=== PATIENT | female | born 1995 | race Caucasian/White ===

== ENCOUNTER 2017-02-27 15:42 | Emergency (ER) | payer OTHER ==
--- NOTE | 2017-02-27 18:11 | ED NURSING NOTES ---
Clinical Report - Nurses [facility] [address] [place] [address] 02/27/2017 15:45 Patient: MARCELA MULLER TRIAGE Triage time 15:49. Acuity: LEVEL 3. Chief Complaint: NUMBNESS. Alert. SEPSIS SCREEN: Sepsis Screen. Negative (no infection suspected/documented). CHANTAL COMA SCORE: Gar[place] Coma Scale: 15- eyes open spontaneously (4); best verbal response- oriented x 4 (5); best motor response- obeys commands (6). --15:55 Adilene Lindsay R.N. 15:49 02/27/17. BP: 128/79. HR: 109. RR: 18. O2 saturation: 98%. Temp: 98.7 F. Pain level now 0/10. --15:55 Adilene Lindsay R.N. Weight: 57.1 kg stated. Height/Length: 68 inches Per Patient. BMI: 19.1. Growth Chart Percentile: Weight: 45.3%. Height/Length: 92.7%. --15:53 Adilene Lindsay R.N. Medications Control Pills. --15:52 Adilene Lindsay R.N. Medication/allergy information source: the patient. --15:55 Adilene Lindsay R.N. Allergies No Known Drug Allergy. --15:52 Adilene Lindsay R.N. History Arrived by private vehicle. Historian: patient. Accompanied by friend. Primary physician (Dr. Hunter). This started just prior to arrival. Patient was last known well (15:30). ( sudden onset of bilateral arm numbness that radiated to upper body and face. Now only bilat arms. Was dizzy.). Treatment CONSERVATION SCIENCE OFFICER: None. PAST MEDICAL HX: Negative. Immunizations: up-to-date. Last normal menstrual period was 1 week ago. SURGERY HX: No history of previous surgery. SOCIAL HX: Never smoker. History of drug use: marijuana. No alcohol use. No infectious disease exposure. ABUSE ASSESSMENT: No report of abuse. SELF HARM ASSESSMENT: A self harm assessment was performed. The patient answered "no" to the question "Do you have thoughts of harming or killing yourself?" and "Are you here because you tried to hurt yourself?". FALL RISK ASSESSMENT: Fall risk assessment completed. No fall risk identified. NUTRITIONAL RISK ASSESSMENT: The nutritional risk assessment revealed no deficiencies. FUNCTIONAL ASSESSMENT: Functional assessment: no impairments noted. LEARNING NEEDS ASSESSMENT: The learning needs assessment revealed no barriers. SKIN INTEGRITY ASSESSMENT: Skin integrity risk assessment completed. No skin integrity risk identified. --15:55 Adilene Lindasy R.N. Interventions ID band on patient. To treatment room. --15:55 Adilene Lindsay R.N. PHYSICAL ASSESSMENT GENERAL / NEURO / PSYCH: Awake. Oriented X 4. Alert. Appears anxious. Speech normal. Mood/affect normal. Strength is not unequal. She has had new onset of numbness of the right arm and hand and left arm and hand. No slurred speech. RESPIRATORY: Respirations not labored. SKIN: Skin is intact, warm and dry. --15:56 Adilene Lindsay R.N. NURSING PROGRESS NOTES Patient gowned. Head of bed elevated. Two patient identifiers checked. Call light placed in reach. Side rails up x 2. Bed placed in lowest position. Brakes of bed on. Patient ready for evaluation- chart flagged. ED physician notified. --15:57 Adilene Lindsay R.N. 15:58 02/27/2017 Site #1 started via IV in the left wrist with an 20g angiocath, with aseptic technique and good blood return; one attempt. Blood drawn: rainbow set. Saline lock flushed with 5 mL saline (placed by Kim MEDRANO). --15:59 Adilene Lindsay R.N. 17:15 02/27/17. BP: 117/64. HR: 104. O2 saturation: 97%. 16:45 02/27/17. BP: 111/60. HR: 95. O2 saturation: 97%. 16:15 02/27/17. BP: 116/63. HR: 101. RR: 16. O2 saturation: 100%. --17:34 Neftali, Adilene, R.N. 18:15 First contact with pt. pt and friends watching t.v. pt in no acute distress. given dc instructions no questions voiced. --18:28 Bettina Taylor R.N. 18:15 02/27/2017 Site #1 removed upon discharge. Bandaid applied. --18:28 Bettina Taylor R.N. 18:15 02/27/2017 IV Saline Lock Drip IV Discontinued: upon discharge. Total amount infused: 0 mL. IV patency established. IV site checked: no pain, redness, or swelling. IV flushed thoroughly. --18:29 Bettina Taylor R.N. DISPOSITION / DISCHARGE 18:20. Condition at departure: improved and stable. No learning barriers present. Discharge instructions provided and reviewed with the patient. Reviewed medication(s) (tylenol or motrin if pain). Treatments reviewed (po food and fluid intake important). Patient and signal circuit designer verbalized understanding. Written instructions provided in Guinean. The patient was discharged home and accompanied by signal circuit designer. She left the Emergency Department ambulatory and via private vehicle. Weight Loss Counselor driving. --18:27 Bettina Taylor R.N. 18:20 02/27/17. BP: 112/66. HR: 74. RR: 18. O2 saturation: 100%. Temp: deferred. Pain level now: 0/10. --18:27 Bettina Taylor R.N. 18:20. CHANTAL COMA SCORE: Garland Coma Scale: 15- eyes open spontaneously (4); best verbal response- oriented x 4 (5); best motor response- obeys commands (6). --18:29 Bettina Taylor R.N. Locked/Released at 02/27/2017 18:29 by Bettina Taylor R.N.
--- NOTE | 2017-02-27 18:11 | ED CLINICAL REPORT ---
Clinical Report - Physicians/Mid Levels [facility] [address] [place] [address] 02/27/2017 15:45 Patient: MARCELA MULLER Time Seen: 15:48. Arrived- By private vehicle. Historian- patient. HISTORY OF PRESENT ILLNESS Chief Complaint: PARESTHESIA. The patient has had numbness, and tingling. No weakness, impaired speech or swallowing, visual disturbance or recent fall. No difficulty walking. This started today about 30 min ago and is still present but is improving. At its maximum deficit described as mild. When seen in the E.D., it was almost gone. No dizziness, altered mental status, seizure or blackouts. Usually is alert and oriented X3 and has normal mobility. (Pt states that she began to have a tingly, numb sensation in both arms while driving. Pt states she began to feel anxious, and after a few minutes, the tingling spread to her face. Pt states that now that she is here, most of the sx have resolved, and only the tips of her fingers have a mild amount of tingling.). Similar symptoms previously: Once, milder. Recent medical care: Not recently seen/assessed. REVIEW OF SYSTEMS No fever, headache, head injury, chest pain or difficulty breathing. No cough, sputum production, sore throat, abdominal pain or nausea. No diarrhea, black stools, difficulty with urination, skin rash or enlarged lymph nodes. No joint pain, vomiting, bloody stools or back pain. All systems otherwise negative, except as recorded above. PAST HISTORY Problems: no known problems. Additional Surgeries: no known surgeries. Medications: Control Pills. Allergies: No Known Drug Allergy. SOCIAL HISTORY Smoker- current status unknown. History of drug use: marijuana. No alcohol use. ADDITIONAL NOTES The nursing notes have been reviewed. PHYSICAL EXAM Vital Signs: 02/27/2017 15:49 BP: 128/79. HR: 109. RR: 18. O2 saturation: 98%. Temp: 98.7 F. Have been reviewed. Appearance: Alert. No acute distress. Head: Head atraumatic. Eyes: Pupils equal, round and reactive to light. ENT: Normal ENT inspection. Airway intact. Neck: Normal inspection. CVS: Normal heart rate and rhythm. Heart sounds normal. Pulses normal. Respiratory: No respiratory distress. Breath sounds normal. Abdomen: Soft and nontender. Back: Normal inspection. Skin: Skin warm and dry. Normal skin color. No rash. Normal skin turgor. Extremities: Extremities exhibit normal ROM. No lower extremity edema. Neuro: Alert. Oriented X 3. Mood/affect normal. Speech normal. Cranial nerves normal (as tested). No cerebellar findings. No motor deficit. No sensory deficit. LABS, X-RAYS, AND EKG Laboratory Tests: UA-Culture if indicated: (GUERLINE: 02/27/2017 16:10) ( [facility] [place] 02[place] 16:36) Final results Test Result Flag Units (Reference) URINE COLOR MACKENZIE URINE APPEARANCE CLEAR URINE GLUCOSE NEGATIVE (NEGATIVE) URINE BILIRUBIN NEGATIVE (NEGATIVE) URINE KETONE 3+ (NEGATIVE) URINE SPECIFIC GRAVITY >= 1.030 (1.010-1.030) URINE PH 6.0 (5.0-8.0) URINE PROTEIN NEGATIVE (NEGATIVE) URINE UROBILINOGEN 0.2 EU/dL (0.2-1.0) URINE NITRITE NEGATIVE (NEGATIVE) URINE BLOOD NEGATIVE (NEGATIVE) URINE LEUK ESTERASE NEGATIVE (NEGATIVE) URINE RBC NONE SEEN rbc/hpf (0-1) URINE WBC 0-1 wbc/hpf (0-1) URINE EPITHELIAL CELLS RARE EPI/hpf (0-5) URINE BACTERIA FEW (1+) (NONE SEEN) URINE COMMENT CULT NOT INDICATED URINE CULTURES ARE SET-UP BASED ON THE FOLLOWING CRITERIA:POSITIVE NITRITEPOSITIVE LEUKOCYTE ESTERASEGREATER THAN 10 WHITE BLOOD CELLSMODERATE (2+) OR GREATER BACTERIA Urine: (GUERLINE: 02/27/2017 16:10) ( [facility] [place] 02/27/2017 16:29) Final results Test Result Flag Units (Reference) URINE NEGATIVE CBC w Diff: (GUERLINE: 02/27/2017 16:00) ( [facility] [place] 02/27/2017 16:13) Final results Test Result Flag Units (Reference) WHITE BLOOD COUNT 9.4 K/uL (4.5-11.5) RED BLOOD COUNT 3.86 L M/uL (4.00-5.20) HEMOGLOBIN 11.9 L gm/dL (12.0-16.0) HEMATOCRIT 35.2 L % (36.0-46.0) MEAN CELL VOLUME 91 fL (80-100) MEAN CORPUSCULAR HGB 31 pg (26-34) MEAN CORPUSCULAR HGB CONC 34 g/dL (31-37) RED CELL DISTRIBUTION WIDTH 13.5 % (11.6-14.8) PLATELET COUNT 264 K/uL (150-400) NEUTROPHIL % 74.5 % (50-75) LYMPH % 18.5 L % (25-40) MONO % 6.6 % (3-14) EOSINOPHIL % 0.1 % (0-4) BASOPHIL % 0.3 % (0-2) CMP: (GUERLINE: 02/27/2017 16:00) ( [facility] 02/27/2017 16:25) Final results Test Result Flag Units (Reference) GLUCOSE 70 mg/dL (70-110) BUN 10 mg/dL (7-18) CREATININE 0.7 mg/dL (0.6-1.3) Estimated GFR >60 mL/min Estimated GFR- >60 mL/min Note: Persistent reduction over 3 months in eGFR<60 mL/min/1.73 m2 defines CKD. Patients with eGFR values>=60 mL/min/1.73 m2 may also have CKD if evidence ofpersistent proteinuria. Additional information may be foundat www.kidney.org. SODIUM 142 mmol/L (136-145) POTASSIUM 3.6 mmol/L (3.5-5.1) CHLORIDE 103 mmol/L (98-107) CARBON DIOXIDE 23 mmol/L (21-32) CALCIUM 8.8 mg/dL (8.5-10.1) TOTAL PROTEIN 7.6 g/dL (6.4-8.2) ALBUMIN 4.2 g/dL (3.3-5.0) BILIRUBIN, TOTAL 1.1 H mg/dL (0.0-1.0) ALKALINE PHOSPHATASE 72 U/L (46-116) AST (SGOT) 21 U/L (15-37) ALT (SGPT) 20 U/L (12-78) . Pulse Oximetry: 02/27/2017 15:49 O2 saturation: 98%. (FIO2 - room air). Interpretation: normal. PROGRESS AND PROCEDURES Course of Care: I d/w pt that sx are not consistent with a CVA. She was worked up for other potential causes of parasthesias, with unremarkable results. Patient counseled in person regarding the patient's stable condition, test results, diagnosis and need for follow-up. Concerns were addressed. Old medical records reviewed. Disposition: Discharged. Condition: stable and improved. CLINICAL IMPRESSION Paresthesia INSTRUCTIONS (Your labs look good. Your symptoms do not go along with a stroke. It is very important that you get enough food and water, so that your nerves (and the rest of your body/organs) function properly.). Warnings: GENERAL WARNINGS: Return or contact your physician immediately if your condition worsens or changes unexpectedly, if not improving as expected, or if other problems arise. Your Current Medications: CONTINUE TAKING THE FOLLOWING MEDICATIONS: Control Pills*. Follow-up: Follow up with your doctor as needed. Understanding of the discharge instructions verbalized by patient. (Electronically signed by Madalyn Hurst MD 03/09/2017 21:32)
--- NOTE | 2017-02-27 18:11 | ED NURSING NOTES ---
Clinical Report - Nurses [facility] [address] [place] [address] 02/27/2017 15:45 Patient: MARCELA MULLER TRIAGE Triage time 15:49. Acuity: LEVEL 3. Chief Complaint: NUMBNESS. Alert. SEPSIS SCREEN: Sepsis Screen. Negative (no infection suspected/documented). CHANTAL COMA SCORE: Watson Coma Scale: 15- eyes open spontaneously (4); best verbal response- oriented x 4 (5); best motor response- obeys commands (6). --15:55 Adilene Lindsay R.N. 15:49 02/27/17. BP: 128/79. HR: 109. RR: 18. O2 saturation: 98%. Temp: 98.7 F. Pain level now 0/10. --15:55 Adilene Lindsay R.N. Weight: 57.1 kg stated. Height/Length: 68 inches Per Patient. BMI: 19.1. Growth Chart Percentile: Weight: 45.3%. Height/Length: 92.7%. --15:53 Adilene Lindsay R.N. Medications Control Pills. --15:52 Adilene Lindsay R.N. Medication/allergy information source: the patient. --15:55 Adilene Lindsay R.N. Allergies No Known Drug Allergy. --15:52 Adilene Lindsay R.N. History Arrived by private vehicle. Historian: patient. Accompanied by friend. Primary physician (Dr. Hunter). This started just prior to arrival. Patient was last known well (15:30). ( sudden onset of bilateral arm numbness that radiated to upper body and face. Now only bilat arms. Was dizzy.). Treatment CANCER REGISTRY COORDINATOR: None. PAST MEDICAL HX: Negative. Immunizations: up-to-date. Last normal menstrual period was 1 week ago. SURGERY HX: No history of previous surgery. SOCIAL HX: Never smoker. History of drug use: marijuana. No alcohol use. No infectious disease exposure. ABUSE ASSESSMENT: No report of abuse. SELF HARM ASSESSMENT: A self harm assessment was performed. The patient answered "no" to the question "Do you have thoughts of harming or killing yourself?" and "Are you here because you tried to hurt yourself?". FALL RISK ASSESSMENT: Fall risk assessment completed. No fall risk identified. NUTRITIONAL RISK ASSESSMENT: The nutritional risk assessment revealed no deficiencies. FUNCTIONAL ASSESSMENT: Functional assessment: no impairments noted. LEARNING NEEDS ASSESSMENT: The learning needs assessment revealed no barriers. SKIN INTEGRITY ASSESSMENT: Skin integrity risk assessment completed. No skin integrity risk identified. --15:55 Adilene Lindsay R.N. Interventions ID band on patient. To treatment room. --15:55 Adilene Lindsay R.N. PHYSICAL ASSESSMENT GENERAL / NEURO / PSYCH: Awake. Oriented X 4. Alert. Appears anxious. Speech normal. Mood/affect normal. Strength is not unequal. She has had new onset of numbness of the right arm and hand and left arm and hand. No slurred speech. RESPIRATORY: Respirations not labored. SKIN: Skin is intact, warm and dry. --15:56 Adilene Lindsay R.N. NURSING PROGRESS NOTES Patient gowned. Head of bed elevated. Two patient identifiers checked. Call light placed in reach. Side rails up x 2. Bed placed in lowest position. Brakes of bed on. Patient ready for evaluation- chart flagged. ED physician notified. --15:57 Adilene Lindsay R.N. 15:58 02/27/2017 Site #1 started via IV in the left wrist with an 20g angiocath, with aseptic technique and good blood return; one attempt. Blood drawn: rainbow set. Saline lock flushed with 5 mL saline (placed by Kim MEDRANO). --15:59 Adilene Lindsay R.N. 17:15 02/27/17. BP: 117/64. HR: 104. O2 saturation: 97%. 16:45 02/27/17. BP: 111/60. HR: 95. O2 saturation: 97%. 16:15 02/27/17. BP: 116/63. HR: 101. RR: 16. O2 saturation: 100%. --17:34 Neftali, Adilene, R.N. 18:15 First contact with pt. pt and friends watching t.v. pt in no acute distress. given dc instructions no questions voiced. --18:28 Betitna Taylor R.N. 18:15 02/27/2017 Site #1 removed upon discharge. Bandaid applied. --18:28 Bettina Taylor R.N. 18:15 02/27/2017 IV Saline Lock Drip IV Discontinued: upon discharge. Total amount infused: 0 mL. IV patency established. IV site checked: no pain, redness, or swelling. IV flushed thoroughly. --18:29 Bettina Taylor R.N. DISPOSITION / DISCHARGE 18:20. Condition at departure: improved and stable. No learning barriers present. Discharge instructions provided and reviewed with the patient. Reviewed medication(s) (tylenol or motrin if pain). Treatments reviewed (po food and fluid intake important). Patient and regional company hazmat tanker driver verbalized understanding. Written instructions provided in Sierra Leonean. The patient was discharged home and accompanied by regional company hazmat tanker driver. She left the Emergency Department ambulatory and via private vehicle. Currency Examiner driving. --18:27 Bettina Taylor R.N. 18:20 02/27/17. BP: 112/66. HR: 74. RR: 18. O2 saturation: 100%. Temp: deferred. Pain level now: 0/10. --18:27 Bettina Taylor R.N. 18:20. CHANTAL COMA SCORE: Watson Coma Scale: 15- eyes open spontaneously (4); best verbal response- oriented x 4 (5); best motor response- obeys commands (6). --18:29 Bettina Taylor R.N. Locked/Released at 02/27/2017 18:29 by Bettina Taylor R.N.
--- NOTE | 2017-02-27 18:11 | ED CLINICAL REPORT ---
Clinical Report - Physicians/Mid Levels [facility] [address] [place] [address] 02/27/2017 15:45 Patient: MARCELA MULLER Time Seen: 15:48. Arrived- By private vehicle. Historian- patient. HISTORY OF PRESENT ILLNESS Chief Complaint: PARESTHESIA. The patient has had numbness, and tingling. No weakness, impaired speech or swallowing, visual disturbance or recent fall. No difficulty walking. This started today about 30 min ago and is still present but is improving. At its maximum deficit described as mild. When seen in the E.D., it was almost gone. No dizziness, altered mental status, seizure or blackouts. Usually is alert and oriented X3 and has normal mobility. (Pt states that she began to have a tingly, numb sensation in both arms while driving. Pt states she began to feel anxious, and after a few minutes, the tingling spread to her face. Pt states that now that she is here, most of the sx have resolved, and only the tips of her fingers have a mild amount of tingling.). Similar symptoms previously: Once, milder. Recent medical care: Not recently seen/assessed. REVIEW OF SYSTEMS No fever, headache, head injury, chest pain or difficulty breathing. No cough, sputum production, sore throat, abdominal pain or nausea. No diarrhea, black stools, difficulty with urination, skin rash or enlarged lymph nodes. No joint pain, vomiting, bloody stools or back pain. All systems otherwise negative, except as recorded above. PAST HISTORY Problems: no known problems. Additional Surgeries: no known surgeries. Medications: Control Pills. Allergies: No Known Drug Allergy. SOCIAL HISTORY Smoker- current status unknown. History of drug use: marijuana. No alcohol use. ADDITIONAL NOTES The nursing notes have been reviewed. PHYSICAL EXAM Vital Signs: 02/27/2017 15:49 BP: 128/79. HR: 109. RR: 18. O2 saturation: 98%. Temp: 98.7 F. Have been reviewed. Appearance: Alert. No acute distress. Head: Head atraumatic. Eyes: Pupils equal, round and reactive to light. ENT: Normal ENT inspection. Airway intact. Neck: Normal inspection. CVS: Normal heart rate and rhythm. Heart sounds normal. Pulses normal. Respiratory: No respiratory distress. Breath sounds normal. Abdomen: Soft and nontender. Back: Normal inspection. Skin: Skin warm and dry. Normal skin color. No rash. Normal skin turgor. Extremities: Extremities exhibit normal ROM. No lower extremity edema. Neuro: Alert. Oriented X 3. Mood/affect normal. Speech normal. Cranial nerves normal (as tested). No cerebellar findings. No motor deficit. No sensory deficit. LABS, X-RAYS, AND EKG Laboratory Tests: UA-Culture if indicated: (GUERLINE: 02/27/2017 16:10) ( [facility] [place] 02/27/2017 16:36) Final results Test Result Flag Units (Reference) URINE COLOR MACKENZIE URINE APPEARANCE CLEAR URINE GLUCOSE NEGATIVE (NEGATIVE) URINE BILIRUBIN NEGATIVE (NEGATIVE) URINE KETONE 3+ (NEGATIVE) URINE SPECIFIC GRAVITY >= 1.030 (1.010-1.030) URINE PH 6.0 (5.0-8.0) URINE PROTEIN NEGATIVE (NEGATIVE) URINE UROBILINOGEN 0.2 EU/dL (0.2-1.0) URINE NITRITE NEGATIVE (NEGATIVE) URINE BLOOD NEGATIVE (NEGATIVE) URINE LEUK ESTERASE NEGATIVE (NEGATIVE) URINE RBC NONE SEEN rbc/hpf (0-1) URINE WBC 0-1 wbc/hpf (0-1) URINE EPITHELIAL CELLS RARE EPI/hpf (0-5) URINE BACTERIA FEW (1+) (NONE SEEN) URINE COMMENT CULT NOT INDICATED URINE CULTURES ARE SET-UP BASED ON THE FOLLOWING CRITERIA:POSITIVE NITRITEPOSITIVE LEUKOCYTE ESTERASEGREATER THAN 10 WHITE BLOOD CELLSMODERATE (2+) OR GREATER BACTERIA Urine: (GUERLINE: 02/27/2017 16:10) ( [facility] [place] 02/27/2017 16:29) Final results Test Result Flag Units (Reference) URINE NEGATIVE CBC w Diff: (GUERLINE: 02/27/2017 16:00) ( [facility] [place] 02/27/2017 16:13) Final results Test Result Flag Units (Reference) WHITE BLOOD COUNT 9.4 K/uL (4.5-11.5) RED BLOOD COUNT 3.86 L M/uL (4.00-5.20) HEMOGLOBIN 11.9 L gm/dL (12.0-16.0) HEMATOCRIT 35.2 L % (36.0-46.0) MEAN CELL VOLUME 91 fL (80-100) MEAN CORPUSCULAR HGB 31 pg (26-34) MEAN CORPUSCULAR HGB CONC 34 g/dL (31-37) RED CELL DISTRIBUTION WIDTH 13.5 % (11.6-14.8) PLATELET COUNT 264 K/uL (150-400) NEUTROPHIL % 74.5 % (50-75) LYMPH % 18.5 L % (25-40) MONO % 6.6 % (3-14) EOSINOPHIL % 0.1 % (0-4) BASOPHIL % 0.3 % (0-2) CMP: (GUERLINE: 02/27/2017 16:00) ( [facility] 02/27/2017 16:25) Final results Test Result Flag Units (Reference) GLUCOSE 70 mg/dL (70-110) BUN 10 mg/dL (7-18) CREATININE 0.7 mg/dL (0.6-1.3) Estimated GFR >60 mL/min Estimated GFR- >60 mL/min Note: Persistent reduction over 3 months in eGFR<60 mL/min/1.73 m2 defines CKD. Patients with eGFR values>=60 mL/min/1.73 m2 may also have CKD if evidence ofpersistent proteinuria. Additional information may be foundat www.kidney.org. SODIUM 142 mmol/L (136-145) POTASSIUM 3.6 mmol/L (3.5-5.1) CHLORIDE 103 mmol/L (98-107) CARBON DIOXIDE 23 mmol/L (21-32) CALCIUM 8.8 mg/dL (8.5-10.1) TOTAL PROTEIN 7.6 g/dL (6.4-8.2) ALBUMIN 4.2 g/dL (3.3-5.0) BILIRUBIN, TOTAL 1.1 H mg/dL (0.0-1.0) ALKALINE PHOSPHATASE 72 U/L (46-116) AST (SGOT) 21 U/L (15-37) ALT (SGPT) 20 U/L (12-78) . Pulse Oximetry: 02/27/2017 15:49 O2 saturation: 98%. (FIO2 - room air). Interpretation: normal. PROGRESS AND PROCEDURES Course of Care: I d/w pt that sx are not consistent with a CVA. She was worked up for other potential causes of parasthesias, with unremarkable results. Patient counseled in person regarding the patient's stable condition, test results, diagnosis and need for follow-up. Concerns were addressed. Old medical records reviewed. Disposition: Discharged. Condition: stable and improved. CLINICAL IMPRESSION Paresthesia INSTRUCTIONS (Your labs look good. Your symptoms do not go along with a stroke. It is very important that you get enough food and water, so that your nerves (and the rest of your body/organs) function properly.). Warnings: GENERAL WARNINGS: Return or contact your physician immediately if your condition worsens or changes unexpectedly, if not improving as expected, or if other problems arise. Your Current Medications: CONTINUE TAKING THE FOLLOWING MEDICATIONS: Control Pills*. Follow-up: Follow up with your doctor as needed. Understanding of the discharge instructions verbalized by patient. (Electronically signed by Madalyn Hurst MD 03/09/2017 21:32)
--- NOTE | 2017-02-27 18:11 | ED ORDER SUMMARY ---
..... Patient: MARCELA MULLER OrderSheet [facility] VisitID: [id number] [address] [place] [address] 22y, F Registration Date/Time: 02/27/2017 ORDER SHEET Weight: 57.1 kg (stated) Allergies: No Known Drug Allergy GENERAL ORDERS: CBC w Diff Urgent (15:58 02/27/2017 LAbe R.N. per protocol) (Ack 16:00 KHoerner) (16:44 LAbe R.N.) CMP Urgent (15:58 02/27/2017 LAbe R.N. per protocol) (Ack 16:00 KHoerner) (16:44 LAbe R.N.) UA-Culture if indicated Urgent (15:58 02/27/2017 LAbe R.N. per protocol) (Ack 16:00 KHoerner) (16:44 LAbe R.N.) Urine Urgent (15:58 02/27/2017 LAbe R.N. per protocol) (Ack 16:00 KHoerner) (16:44 LAbe R.N.) MEDICATION ORDERS: IV FLUIDS: IV Saline Lock (15:58 02/27/2017 LAbe R.N. per protocol) (15:58 LAbe R.N.) ORDER SHEET NOTES: [Electronically signed by Bettina Taylor R.N. (18:29 02/27/2017)] [Electronically signed by Madalyn Hurst MD (21:32 03/09/2017)] [Electronically locked/signed by Bettina Taylor R.N. (18:29 02/27/2017)]
--- NOTE | 2017-02-27 18:11 | ED ORDER SUMMARY ---
..... Patient: MARCELA MULLER OrderSheet [facility] VisitID: [id number] [address] [place] [address] 22y, F Registration Date/Time: 02/27/2017 ORDER SHEET Weight: 57.1 kg (stated) Allergies: No Known Drug Allergy GENERAL ORDERS: CBC w Diff Urgent (15:58 02/27/2017 LAbe R.N. per protocol) (Ack 16:00 KHoerner) (16:44 LAbe R.N.) CMP Urgent (15:58 02/27/2017 LAbe R.N. per protocol) (Ack 16:00 KHoerner) (16:44 LAbe R.N.) UA-Culture if indicated Urgent (15:58 02/27/2017 LAbe R.N. per protocol) (Ack 16:00 KHoerner) (16:44 LAbe R.N.) Urine Urgent (15:58 02/27/2017 LAbe R.N. per protocol) (Ack 16:00 KHoerner) (16:44 LAbe R.N.) MEDICATION ORDERS: IV FLUIDS: IV Saline Lock (15:58 02/27/2017 LAbe R.N. per protocol) (15:58 LAbe R.N.) ORDER SHEET NOTES: [Electronically signed by Bettina Taylor R.N. (18:29 02/27/2017)] [Electronically signed by Madalyn Hurst MD (21:32 03/09/2017)] [Electronically locked/signed by Bettina Taylor R.N. (18:29 02/27/2017)]
--- NOTE | 2017-03-09 21:33 | ED MAR SUMMARY ---
..... Medication Administration Record [facility] [address] [place], [place] [id number] Patient: MARCELA MULLER Visit ID: [id number] 22y, F Weight: 57.1 kg Height/Length: 68 in BMI: 19.1 ALLERGIES: No Known Drug Allergy
--- NOTE | 2017-03-09 21:33 | ED MAR SUMMARY ---
..... Medication Administration Record [facility] [address] [place], [place] [id number] Patient: MARCELA MULLER Visit ID: [id number] 22y, F Weight: 57.1 kg Height/Length: 68 in BMI: 19.1 ALLERGIES: No Known Drug Allergy
--- NOTE | 2017-03-09 21:33 | ED DISCHARGE INSTRUCTIONS ---
Patient: MARCELA MULLER General Instructions [facility] VisitID: [id number] [place] [address] 22y, F Registration Date/Time: 02/27/2017 Paresthesia INSTRUCTIONS (Your labs look good. Your symptoms do not go along with a stroke. It is very important that you get enough food and water, so that your nerves (and the rest of your body/organs) function properly.). Warnings: GENERAL WARNINGS: Return or contact your physician immediately if your condition worsens or changes unexpectedly, if not improving as expected, or if other problems arise. Your Current Medications: CONTINUE TAKING THE FOLLOWING MEDICATIONS: Control Pills*. Follow-up: Follow up with your doctor as needed. Understanding of the discharge instructions verbalized by patient. ADDITIONAL INFORMATION Paraesthesias Paraesthesia refers to a burning or prickling sensation that is sometimes felt in the hands, arms, legs or feet. It can also occur in other parts of the body. It can also feel like tingling or numbness, skin crawling or itching.The sensation is usually painless. Most people have experienced pins and needles. This feeling happens when legs have been crossed for too long and pressure is placed on a nerve. This is a temporary paraesthesia. It quickly goes away once the pressure is relieved. There are many possible causes for chronic paraesthesias. These include such disorders as stroke, herniated disk (pressing on a nerve), trapped nerve in the shoulder, elbow or wrist (such as carpal tunnel syndrome), vitamin deficiencies or even certain medicines. Laboratory tests are needed to make an accurate diagnosis. These tests may include blood tests, X-ray, CT (computerized tomography) scan or a muscle test (electromyography).Depending on the cause, treatment may include physical therapy. Home Care: Do not make any changes to your medicines without advice from your doctor. If vitamins have been prescribed, remember to take them daily at the recommended dose. Because of a decrease in feeling, a numb hand or foot may be more prone to injury. Take care to protect these areas from cuts, bumps, bruises, beyer or other injury. Keep your nails trimmed and wash your hands and feet often. Wear shoes that fit well to avoid pressure points, blisters and ulcers. Look at your hands and feet carefully (including the soles of your feet and between your toes) at least once a week and notify your doctor of any open wounds or signs of infection. Follow Up with your doctor or as advised by our staff. You may need further testing to determine the exact cause of your paraesthesia. [NOTE: If blood tests, X-ray, CT scan or electromyography were done, specialists will review them. You will be notified of any new findings that may affect your care.] Get Prompt Medical Attention if any of the following occur: Numbness or weakness of the face, one arm or one leg Slurred speech, confusion, trouble speaking, walking or seeing Severe headache, fainting spell, dizziness or seizure Chest, arm, neck or upper back pain Loss of bladder or bowel control Open wound with redness, swelling or pus You have been given the following additional information: Paraesthesias (Electronically signed by Madalyn Hurst MD 03/09/2017 21:32)
--- NOTE | 2017-03-09 21:33 | ED MED RECONCILIATION SUMMARY ---
Patient: MARCELA MULLER Medication Reconciliation Report [facility] VisitID: [id number] [address] [place] [address] 22y, F Registration Date/Time: 02/27/2017 Weight: 57.1 kg Height/Length: 68 in. BMI: 19.1 ALLERGIES: No Known Drug Allergy The patient's Home Medications are listed below: CONTINUE TAKING THE FOLLOWING MEDICATIONS: Control Pills The source(s) of the original Home Medication information: patient The following Medications were given to the patient in the Emergency Department: None. The following Medications were prescribed to the patient: None.
--- NOTE | 2017-03-09 21:33 | ED MED RECONCILIATION SUMMARY ---
Patient: MARCELA MULLER Medication Reconciliation Report [facility] VisitID: [id number] [address] [place] [address] 22y, F Registration Date/Time: 02/27/2017 Weight: 57.1 kg Height/Length: 68 in. BMI: 19.1 ALLERGIES: No Known Drug Allergy The patient's Home Medications are listed below: CONTINUE TAKING THE FOLLOWING MEDICATIONS: Control Pills The source(s) of the original Home Medication information: patient The following Medications were given to the patient in the Emergency Department: None. The following Medications were prescribed to the patient: None.
== END 2017-02-27 18:20 | disposition home or self-care (01) ==
LOC: ED SRH 15:42
DX: R20.2 Paresthesia of skin (principal)
CPT/HCPCS: 90004; 90100; 93070; 95059